=== PATIENT | male | born 1975 | race Caucasian/White ===

== ENCOUNTER 2019-11-21 18:01 | Emergency (ER) | payer OTHER ==
[~2019-11-21] VITALS: Ht 175.3 cm; Wt 77.3 kg
[2019-11-21 18:05] VITALS: TEMP 98.3
[2019-11-21 18:23] LABS: BASO % 0.5 % (0.0-2.0); EOS # 0.1 (0.0-0.7); EOS % 1.9 % (0-4.0); GRAN % 69.5 % (42.2-75.2); HEMATOCRIT 46.5 % (42.0-52.0); HEMOGLOBIN 15.6 g/dl (13.5-18.0); LYMPH # 1.2 (1.2-3.4); LYMPH % 20.1 % (20.0-51.0); MEAN CELL VOLUME 90 fl (80.0-100.0); MEAN CORPUSCULAR HEMOGLOBIN 30 pg (27.0-31.0); MEAN CORPUSCULAR HGB CONC 34 g/dl (33.0-37.0); MEAN PLATELET VOLUME 10.1 fl (7.4-10.4); MONO # 0.5 (0.1-0.6); MONO % 7.8 % (1.7-9.3); PLATELET COUNT 210 K/mm3 (130-400); RED BLOOD COUNT 5.16 M/mm3 (4.20-5.60); REDCELL DISTRIBUTION WIDTH-CV 12.3 % (11.5-14.5)
[2019-11-21 18:39] LABS: ALANINE AMINOTRANSFERASE 24 U/L (4-49); ALBUMIN 4.3 gm/dL (3.5-5.0); ALKALINE PHOSPHATASE 52 U/L (50-136); ANION GAP 9 mmol/L (7-16); AST,SGOT 30 U/L (15-37); BILIRUBIN,TOTAL 0.8 mg/dL (0.0-1.0); BLOOD UREA NITROGEN 18 mg/dL (9-20); CALCIUM 9.1 mg/dL (8.4-10.2); CARBON DIOXIDE 22 mmol/L (22-30); CHLORIDE 106 mmol/L (98-107); CREATININE, serum 1.27 (0.66-1.25); GLUCOSE 101 mg/dL (74-106); POTASSIUM 4.2 mmol/L (3.4-5.0); SODIUM 137 mmol/L (137-145); TOTAL PROTEIN 7.1 gm/dL (6.4-8.2)
[2019-11-21 18:40] LABS: C-REACTIVE PROTEIN < 0.5 mg/dL (0.0-0.9)
[2019-11-21 18:40] LABS: COLLECTION METHOD CLEAN CATCH
[2019-11-21 18:45] LABS: MUCOUS Present /lpf; PH 6 (5-8); SQUAMOUS EPITHELIAL None Seen /hpf; URINE APPEARANCE Clear; URINE BACTERIA None Seen /hpf; URINE BILIRUBIN Negative (NEGATIVE); URINE BLOOD 2+ (NEGATIVE); URINE COLOR Yellow; URINE GLUCOSE Negative (NEGATIVE); URINE KETONE Trace (NEGATIVE); URINE LEUKOCYTE ESTERASE Negative (NEGATIVE); URINE NITRATE Negative (NEGATIVE); URINE PROTEIN(semi-quant) Negative (NEGATIVE); URINE RBC >50 /hpf; URINE UROBILINOGEN Negative (NEGATIVE)
[2019-11-21 20:22] VITALS: BP 158/107; PULSE 56
== END 2019-11-21 20:24 | disposition home or self-care (01) ==
LOC: COL.ER 18:01
PROVIDERS: Physician Assistant
DX: N20.0 Calculus of kidney (principal); F32.9 Major depressive disorder, single episode, unspecified; F43.10 Post-traumatic stress disorder, unspecified; M47.816 Spondylosis without myelopathy or radiculopathy, lumbar region; Z87.891 Personal history of nicotine dependence; Z98.890 Other specified postprocedural states
CPT/HCPCS: J1885; J2405; J7030; Q9967

== ENCOUNTER 2019-12-12 07:31 | Day surgery (SDC) | payer OTHER ==
[~2019-12-12] VITALS: Ht 175.3 cm; Wt 80.6 kg
[2019-12-12 08:38] VITALS: BP 137/89; PULSE 59; TEMP 98.3
[2019-12-12 11:39] VITALS: TEMP 97.6
[2019-12-12 12:45] VITALS: BP 131/88; PULSE 55
--- NOTE | 2019-12-12 12:45 | NUR ---
Patient returns to room 3 per cart and is awake and alert. Temp 97.6 and room air sats 97%. Denies pain or nausea. Assisted up to the bathroom and gait steady. Patient is able to void and returns to room. Drinking water and spouse in the room. IV fluids infusing and call light in reach.
[2019-12-12 13:00] VITALS: BP 136/81; PULSE 49
[2019-12-12] MEDS ORDERED: NORCO 325 MG-51 TAB PO (13:00)
[2019-12-12] MEDS ORDERED: FLOMAX 0.40.4 MG/CAP PO (13:00)
--- NOTE | 2019-12-12 13:00 | NUR ---
Room air sats 98% and is resting without complaints of pain.
[2019-12-12 13:15] VITALS: BP 123/61; PULSE 53
--- NOTE | 2019-12-12 13:15 | NUR ---
IV discontinued and site is free of redness. Patient dresses self.
--- NOTE | 2019-12-12 13:17 | NUR ---
Given dismissal instructions and provided script for [facility] and Flomax. Voices understanding of dismissal instructions and spouse also in room and all questions answered.
--- NOTE | 2019-12-12 13:23 | NUR ---
Patient dismissesd to home per private vehicle driven by spouse and taken to the front door per wheelchair and assisted into car with instructions in hand.
== END 2019-12-12 13:23 | disposition home or self-care (01) ==
LOC: SDCO 07:31
DX: N20.2 Calculus of kidney with calculus of ureter (principal); Z79.891 Long term (current) use of opiate analgesic; Z87.891 Personal history of nicotine dependence; Z80.8 Family history of malignant neoplasm of other organs or systems
CPT/HCPCS: C1769; C2617; J0360; J0690; J1100; J1885; J2250; J2405; J2704; J3010; J7120; Q9967

== ENCOUNTER 2020-06-25 02:28 | Emergency (ER) | payer OTHER ==
[~2020-06-25] VITALS: Ht 175.3 cm; Wt 77.3 kg
[2020-06-25 02:28] VITALS: TEMP 98.3
[~2020-06-25 02:28] MED LIST: FLOMAX 0.40.4 MG/CAP PO; NORCO 325 MG-51 TAB PO
[2020-06-25 03:53] LABS: COLLECTION METHOD CLEAN CATCH
[2020-06-25 03:58] LABS: MUCOUS Present /lpf; PH 6 (5-8); SQUAMOUS EPITHELIAL 0-2 /hpf; URINE APPEARANCE Clear; URINE BACTERIA None Seen /hpf; URINE BILIRUBIN Negative (NEGATIVE); URINE BLOOD Negative (NEGATIVE); URINE COLOR Yellow; URINE GLUCOSE Negative (NEGATIVE); URINE KETONE Trace (NEGATIVE); URINE LEUKOCYTE ESTERASE Negative (NEGATIVE); URINE NITRATE Negative (NEGATIVE); URINE PROTEIN(semi-quant) Negative (NEGATIVE); URINE RBC 0-2 /hpf; URINE UROBILINOGEN Negative (NEGATIVE); URINE WBC 0-2 /hpf
[2020-06-25] MEDS ORDERED: PREDNISONE50 MG PO (04:17)
[2020-06-25] MEDS ORDERED: VOLTAREN 75 DR75 MG PO (04:17)
[2020-06-25] MEDS ORDERED: FLEXERIL 1010 MG/TAB PO (04:17)
[2020-06-25 04:35] VITALS: BP 138/84; PULSE 103
== END 2020-06-25 04:31 | disposition home or self-care (01) ==
LOC: COL.ER 02:28
PROVIDERS: Emergency Medicine
DX: S39.012A Strain of muscle, fascia and tendon of lower back, initial encounter (principal); X58.XXXA Exposure to other specified factors, initial encounter
CPT/HCPCS: J1170; J1885; J2360; J2550

== ENCOUNTER 2021-06-09 21:10 | Emergency (ER) | payer OTHER ==
[~2021-06-09 21:10] MED LIST changes: +FLEXERIL 1010 MG/TAB PO; +PREDNISONE50 MG PO; +VOLTAREN 75 DR75 MG PO
[2021-06-09 21:18] VITALS: TEMP 98.6
[2021-06-09] MEDS ORDERED: FLEXERIL 1010 MG/TAB PO (22:06)
[2021-06-09] MEDS ORDERED: NORCO 325 MG-51 TAB PO (22:31)
[2021-06-09] MEDS ORDERED: MEDROL 4MG DOSPA4 MG PO (23:34)
[2021-06-09 23:51] VITALS: BP 148/76; PULSE 67
== END 2021-06-09 23:51 | disposition home or self-care (01) ==
LOC: COL.ER 21:10
DX: G89.29 Other chronic pain (principal); M54.50 Low back pain, unspecified; F17.200 Nicotine dependence, unspecified, uncomplicated; Z87.440 Personal history of urinary (tract) infections; Z79.1 Long term (current) use of non-steroidal anti-inflammatories (NSAID)
CPT/HCPCS: J1885; J2360

== ENCOUNTER 2022-08-26 10:21 | Day surgery (SDC) | payer OTHER ==
[~2022-08-26] VITALS: Ht 175.3 cm; Wt 84.9 kg
[~2022-08-26 10:21] MED LIST changes: +MEDROL 4MG DOSPA4 MG PO
[2022-08-26 11:41] VITALS: BP 159/109; PULSE 70; TEMP 98.3
--- NOTE | 2022-08-26 11:49 | NUR ---
ELEVATED BLOOD PRESSURE REPORTED TO DESHAUN MERCEDES CRNA. NO ORDERS.
[2022-08-26 13:00] VITALS: BP 131/100; PULSE 71; TEMP 98.3
--- NOTE | 2022-08-26 13:00 | NUR ---
1300 PATIENT RETURNS TO ROOM 2 VIA CART. PATIENT IS ALERT AND ORIENTED. PATIENT AMBULATES TO RECLINER WITH THE ASSISTANCE OF 2 NURSES. RESPIRATIONS EVEN AND UNLABORED. VITAL SIGNS OBTAINED. SIGNIFICANT OTHER IN ROOM. PATIENT DOES NOT WANT ANYTHING TO EAT OR DRINK AT THIS TIME. 1325 THIS NURSE REVIEWED DISCHARGE INSTRUCTIONS WITH PATIENT AND PATIENT SPOUSE. BOTH VERBALIZED UNDERSTANDING. 1332 DOCTOR IN TO SPEAK WITH PATIENT. 1346 THIS NURSE DISCONTINUED IV FROM RIGHT HAND WITH NO DIFFICULTIES. 1400 PATIENT DISCHARGES FROM UNIT VIA WHEELCHAIR IN STABLE CONDITION TO PERSONAL CAR.
[2022-08-26 13:15] VITALS: BP 142/114; PULSE 69
[2022-08-26 13:30] VITALS: BP 135/103; PULSE 63
== END 2022-08-26 14:00 | disposition home or self-care (01) ==
LOC: SDCO 10:21
DX: Z12.11 Encounter for screening for malignant neoplasm of colon (principal); K64.1 Second degree hemorrhoids; K58.2 Mixed irritable bowel syndrome; Z87.891 Personal history of nicotine dependence
CPT/HCPCS: J2704; J7120